=== PATIENT | female | born 1955 | race Caucasian/White ===

== ENCOUNTER 2016-09-22 05:47 | Day surgery (SDC) | payer BC ==
--- NOTE | 2016-09-15 14:47 | NUR ---
Education Postop CTR handouts and Surgical Services pamphlet sent to patient via mail.
[~2016-09-22] VITALS: Ht 165.1 cm; Wt 76.2 kg
[~2016-09-22 05:47] MED LIST: MULT-669 PO; NAPR220T61 PO; VIT1CAPS21 PO
--- OUTSIDE RECORDS SUMMARY | 2016-09-22 05:49 | XMS REPORT | Continuity of Care Document ---
Author Author [facility] Organization [facility] Address Unknown Phone Unavailable Support Name Relationship Address Phone ASHLEY GALAVIZ MD Caregiver [address] [place] [address] Unavailable BAHMAN NAVA MD Caregiver [address] [place] [address] Unavailable ROSEMARIE ERICKSON Next Of Kin [address] [place] [address] Insurance Providers Guarantor Andrea Erickson Address [address] [place] [address] C Email [email or web address] [email or web address] [facility] Policy Number [id number] Subscriber's Name Rosemarie Erickson Relationship 01 Spouse Group Number [id number] Effective Date 16 Advance Directives Directive Response Recorded Date/Time Ordered Resuscitation Status Full Code 07/22/16 1:21pm Resuscitation Documents on File Y PT BROUGHT COPY WITH HER TO BE PUT IN FILE 07/23/16 10:28am DPOA for Healthcare Only Yes 07/23/16 10:28am Living Will Yes 07/23/16 10:28am Problems No problem information available. Medications Current Home Medications Medication Dose Units Route Directions Days Qty Instructions Start Date Hydrocodone/Acetaminophen ([place] 5-325 Tablet) 5-325 Tablet 1-2 Tab Oral Every 6 Hours as needed for Pain 20 Tablet This medication contains Tylenol , do not take more than 3,000 mg of Tylenol in a 24 hr period. 07/23/16 Multivitamin With Minerals (Multiple Vitamin) 1 Each Tablet 1 Tab Oral Daily 07/21/16 Naproxen Sodium (Aleve) 220 Mg Tablet 1 Tab Oral Daily as needed for Pain 07/21/16 Polyethylene Glycol 3350 (Miralax) 17 Gm Powd.pack 17 G Oral Daily as needed for Constipation 1 Bottle Take 17 Grams (1 capful), by mouth, once a day. 07/23/16 Vit C/Vit E/Lutein/Min/[place]-3 (Ocuvite Softgel) 1 Each Capsule 1 Cap Oral Daily 07/21/16 Social History Social History Problem Response Recorded Date/Time Onset Date Status Reason for Hospitalization CTR 07/23/2016 12:50pm Not Applicable Not Applicable Chewing Tobacco Status No 07/21/2016 4:13pm Not Applicable Not Applicable Hx Substance Use No 07/21/2016 4:13pm Not Applicable Not Applicable Hx Alcohol Use Y OCC 07/21/2016 4:13pm Not Applicable Not Applicable Has the pt used tobacco in the last 12 months No 07/21/2016 4:13pm Not Applicable Not Applicable Query Response Start Date Stop Date Smoking Status Never smoker Hospital Discharge Instructions Instructions: Care Instructions: I was in the hospital because (patient own words): RELEASE PRESSURE ON RIGHT WRIST Discharge Diet: Resume your normal diet as tolerated. Discharge Activity: -Exercises are to be performed 2-3 times daily. -DO NOT lift any weight heavier than a coffee cup -Gentle range of motion of the wrist Follow Up Appointments: Follow up as scheduled. Pending Lab / Results: No Pending Lab Patient Instructions: DO NOT DRIVE, OPERATE MACHINERY, DRINK ALCOHOL, OR SIGN IMPORTANT PAPERS FOR 24 HOURS OR WHILE TAKING PAIN MEDICATIONS. Expected Signs/Symptoms: There will be pain at the incision site. Expect possible wrap swelling of the fingers. The bryan may be loosened if it feels too tight. Call your physician if you are unable to feel or move your fingers. Notify Physician If: You should contact our office if you develop significant drainage from the surgical incision, redness, or fever about 102 degrees. During Business Hours:: Contact the office at [phone] After Business Hours:: After office hours, please call [facility] at [phone] and have the tub wash operator page the physician. Pain Management/Treatment: You will be given a prescription for pain medication. You will have post-surgical pain for the first week after surgery. An anti-inflammatory medication may also be taken (mobic, ibuprofen, or naproxen). Wound/Incision Care: Keep the dressing clean and dry. On post-op day #4 you may remove the dressing. The incision needs to stay dry until you follow up with your physician. You may shower. DO NOT apply creams or ointments (bacitracin, triple antibiotic) to the incisions. Do not soak the wrist in water or go swimming until your sutures are removed. Condition at time of discharge: Good Plan of Care Discharge Date 07/23/16 1:45pm Prescriptions See Medication Section Functional Status Query Response Date Recorded Ability to complete ADL's impeded by No change July 23, 2016 10:28am Allergies, Adverse Reactions, Alerts No known allergies. Immunizations Query Response on File Recorded Date/Time Hx Influenza Vaccination Y -07/21/16 4:13pm Hx Pneumococcal Vaccination No 07/21/16 4:13pm Hx Influenza Vaccination Y 03-2207/21/16 4:13pm Vital Signs Acute Vital Signs Vital Response Date/Time Temperature (Fahrenheit) 97.0 deg F (96.8 - 99.1) 07/23/2016 12:33pm Temperature (Calculated Celsius) 36.46161 degrees C (36.0 - 37.3) 07/23/2016 12:33pm Temperature Source Temporal 07/23/2016 12:33pm Pulse Rate (adult) 100 bpm (60 - 100) 07/23/2016 1:30pm Respiratory Rate 12 breaths/min (10 - 20) 07/23/2016 1:30pm O2 Sat by Pulse Oximetry 100 % (90 - 100) 07/23/2016 1:30pm Oxygen Delivery Method Room Air 07/23/2016 1:30pm Blood Pressure 138/63 mm Hg 07/23/2016 1:30pm Blood Pressure Source Automatic Cuff 07/23/2016 1:30pm Height (Feet) 5 feet 07/23/2016 10:15am Height (Inches) 5.50 inches 07/23/2016 10:15am Weight (Kilograms) 77.000 kg 07/23/2016 10:15am Body Mass Index (BMI) 27.8 07/23/2016 10:15am Results No known relevant diagnostic tests, laboratory data and/or discharge summary. Procedures Procedure Status Date Provider(s) Musc test done w/n test comp Completed 07/01/16 Nrv cndj test 7-8 studies Completed 07/01/16 Carpal tunnel release, right Completed 07/23/16 BAHMAN NAVA MD Encounters Encounter Location Arrival/Admit Date Discharge/Depart Date Attending Provider Departed Surgical Day Care [facility] 07/23/16 10:04am 07/23/16 1 :45pm BAHMAN NAVA MD Registered Clinic [facility] 07/01/16 2:46pm RUI PHELAN MD
--- OUTSIDE RECORDS SUMMARY | 2016-09-22 05:49 | XMS REPORT | Continuity of Care Document ---
Author Author [facility] Organization [facility] Address Unknown Phone Unavailable Allergies Medications Problems Date Dx Coded Attending Type Code Diagnosis Diagnosed By 10/14/2015 Johanna Vicente MD 780.79 Fatigue 06/15/2016 Johanna Vicente MD 719.43 Wrist pain 06/15/2016 Johanna Vicente MD 719.46 Knee pain 07/09/2016 Johanna Vicente MD 354.0 Carpal tunnel syndrome Procedures Code Description Performed By Performed On THRMO Check the chart for orders due in three months 10/14/2015 58627 Office visit - new pt, level 2 10/14/2015 45911 Office/outpatient visit; established patient, level 3 06/15/2016 47078 Radiologic examination, knee; three views 07/09/2016 21059 Office/outpatient visit; established patient, level 3 07/09/2016 Results Encounters ACCT No. Visit Date/Time Discharge Status Pt. Type Provider Facility Loc./Unit Complaint [id number] 07/09/2016 08:56:51 2016 09:49:20 DIS Outpatient Johanna Vicente MD [facility]_
[2016-09-22 06:00] VITALS: BP 149/98; PULSE 103; RESP 16; TEMP 98.8; O2SAT 99
[2016-09-22 06:01] VITALS: Ht 165.1 cm; Wt 76.2 kg
[2016-09-22 06:41] LABS: BASOPHILS # (AUTO) 0.1 T/MM3 (0-0.2); EOSINOPHILS # (AUTO) 0.1 T/MM3 (0-0.5); EOSINOPHILS % (AUTO) 2.3 % (0-4); HCT - HEMATOCRIT 43.6 % (36-46); HGB - HEMOGLOBIN 14.7 GM/DL (12-16); IMMATURE GRANULOCYTE # (AUTO) 0.01 T/MM3 (0.00-0.03); IMMATURE GRANULOCYTE % (AUTO) 0.2 % (0.0-0.5); LYMPHOCYTES # (AUTO) 1.7 T/MM3 (1-4.8); LYMPHOCYTES % (AUTO) 35.7 % (23-45); MEAN CORPUSCULAR HGB 30.1 UUG (26-34); MEAN CORPUSCULAR HGB CONC(MCHC 33.7 GM/DL (31-37); MEAN CORPUSCULAR VOLUME 89.2 UM3 (80-100); MEAN PLATELET VOLUME 10.4 UM3 (9.4-12.4); MONOCYTES # (AUTO) 0.7 T/MM3 (0-0.8); MONOCYTES % (AUTO) 13.3 % (0-9.0); NEUTROPHILS #(AUTO)-ABSOLUTE 2.3 T/MM3 (1.8-7.7); NEUTROPHILS % (AUTO) 47.5 % (33-66); RED BLOOD COUNT 4.89 M/MM3 (4.00-5.20); WBC - WHITE BLOOD COUNT 4.9 T/MM3 (4.5-11.0)
--- NOTE | 2016-09-22 06:55 | ANESPREOP ---
Anesthesia Record Date and Time DATE: 09/22/16 TIME: 06:54 Pre-Op Diagnosis LCTS Proposed Surgical Procedure LT CTR Allergies: Coded Allergies: No Known Allergies (Unverified , 07/23/16) Ht/Wt/BMI Height: 5 ' 5.00 " Weight: 76.200 kg BMI: 28.0 kg/m2 Vital Signs Date Time Temp Pulse Resp B/P Pulse Ox O2 Delivery O2 Flow Rate FiO2 09/22/16 06:00 98.8 103 16 149/98 99 Room Air Medications Inpatient Medications Current Medications Medications (Trade) Dose Ordered Sig/Christine Start Time Stop Time Status Last Admin Dose Admin Lactated Ringer's (Lactated Ringers) 1,000 ml @ 50 mls/hr Q20H 09/22/16 07:00 09/22/16 06:32 50 MLS/HR Multivitamin with Minerals (Multiple Vitamin) 1 Each Tablet, 1 TAB PO DAILY, ( Reported) Last Taken: on 09/21/16 0700 Naproxen Sodium (Aleve) 220 Mg Tablet, 1 TAB PO DAILY PRN for PAIN, (Reported) Last Taken: on 09/21/16 0700 Vit C/Vit E/Lutein/Min/[place]-3 (Ocuvite Softgel ) 1 Each Capsule, 1 CAP PO DAILY, (Reported) Last Taken: on 09/21/16 0700 Currently on Beta Corina: No Medical/Surgical History Anesthesia PMH: Reports: Cancer (BCC ON NECK), Denies: *Angina, *ID, Anesthesia Reactions (NO KNOWN PROBLEMS IN ANY BLOOD RELATION), Asthma, CVA/ Stroke/TIA, Clotting Problems, Glaucoma, Malignant Hyperthermia, Reflux, Sleep Apnea Smoking Status: Never smoker Use Chewing Tobacco?: No Second Hand Exposure: No Substance Use Type: does not use Alcohol Intake: none HX of Last Menstrual Period: POST MENOPAUSAL Past Surgical History Orthopedic Surgeries: Abdominal Surgeries: Genitourinary Surgeries: Cardiac Surgeries: Endocrine Surgeries: Reproductive Surgeries: Neurological Surgeries: Yes - RT CTR Ear Surgeries: Nose Surgeries: Throat Surgeries: Other Surgeries: Yes - C SCOPE Anesthesia Adverse Reactions: FOUND none Family Hx of Anesthesia Advers: none Hx of Motion Sickness: No Pertinent Findings Laboratory Tests 09/22/16 06:15 EKG Rhythm: Sinus Rhythm EKG Ectopy: PVC Physical Exam Respiratory: Bilat breath sounds equal, Lungs clear Cardiovascular: FOUND Regular rate, rhythm, FOUND No murmur Airway Assessment Mallampati Score: I TMD: 3 Fingerbreadths Overall Assessment: No Airway Concerns ASA: 1 Plan Anesthesia Plan: TIVA Discussion Discussed risks/options/alternatives of anesthesia and questions answered. Patient consents. Nursing pain assessment noted. Present: Spouse Attestation Statement Prior to the delivery of any anesthetic medication, I examined the patient, developed the plan, obtained the patient's consent and discussed the risk and benefits of the procedure with the patient/guardian. SUHAIL GILMAN [employer] BUTTON PASTER Sep 22, 2016 06:55
[2016-09-22] MEDS ORDERED: BUPIVACAINE 0.25% (2.5mg/ml) INJ 30ml SDV ONE (06:57)
[2016-09-22] MEDS ORDERED: LIDOCAINE 1% (10mg/ml) 30ml SDV ONE (06:57)
[2016-09-22 06:59] VITALS: PULSE 79; TEMP 97.9
[2016-09-22] MEDS ORDERED: LIDOCAINE 1% (10mg/ml) 2ml SDV INJ ONE (07:00)
[2016-09-22] MEDS ORDERED: LR 1,000 ML IV SCH (07:00)
[2016-09-22] MEDS ORDERED: LIDOCAINE 2% (20mg/ml) 5ml PF SDV ONE (07:09)
[2016-09-22] MEDS ORDERED: PROPOFOL 500mg 50 ML IV ONE (07:09)
[2016-09-22] MEDS ORDERED: FENTANYL 100mcg/2ml INJECTION ONE (07:09)
[2016-09-22] MEDS ORDERED: KETAMINE 500mg/10ml INJECTION ONE (07:22)
[2016-09-22] MEDS ORDERED: HYDR-4246 PO (07:27)
[2016-09-22] MEDS ORDERED: POLY17PO6 PO (07:27)
[2016-09-22 07:42] VITALS: BP 140/65; PULSE 99; RESP 16; TEMP 96.8; O2SAT 98
--- NOTE | 2016-09-22 07:46 | PDOPERATE ---
Operative Note Date of Opeation 09/22/16 Preoperative Diagnosis Left carpal tunnel syndrome. Postoperative Diagnosis Left carpal tunnel syndrome. Operation Left carpal tunnel release. Surgeon Ava Weiner MD Complications None. Anesthesia TIVA with local. Tourniquet Time Please see Anesthesia Record. Estimated Blood Loss Minimal. Description of Procedure The patient and the operative extremity were identified and marked in the preoperative holding area. The patient was brought back to the operating suite and placed supine on the operating table. The patient was placed under general anesthesia. The left upper extremity was prepped and draped in my normal sterile fashion. A timeout was preformed. The arm was exsanguinated, and the tourniquet was inflated to 250 mmHg. The incision site was injected with 0.25% Marcaine and 1% Lidocaine. A 2.5 cm incision was made just ulnar to the thenar crease.Sharp dissection was carried down through the skin and subcutaneous fat, down to the palmar fascia and down to the transverse carpal ligament which was then excised under direct visualization, first with a scalpel and then completed both proximally and distally with scissors under direct visualization until all tight bands were released around the nerve. The wound was then irrigated, and the incision was closed with a 3-0 nylon in simple interrupted fashion. A sterile soft dressing was placed. The tourniquet was let down. The patient was allowed to awaken from general anesthesia and was taken to the recovery room under the care of Anesthesia. The patient tolerated the procedure well. There were no complications. BAHMAN WEINER MD Sep 22, 2016 07:46
--- NOTE | 2016-09-22 07:47 | ANESPO ---
Post-Op Note Date 09/22/16 Time: 07:47 Status Pt Participated in Evaluation: Pt participated in person Vital Signs Date Time Temp Pulse Resp B/P Pulse Ox O2 Delivery O2 Flow Rate FiO2 09/22/16 06:59 97.9 79 09/22/16 06:00 16 149/98 99 Room Air Respiratory Function: Airway patent, Regular respirations Cardiovascular Function: Regular pulse Telemetry Pattern: SR Mental Status: Alert/oriented Pain Level Intensity: 0 Hydration: IV infusing Complications during Recovery None apparent Follow-Up Instructions Instructions Per Surgeon SUHAIL GILMAN CRNA Sep 22, 2016 07:47
[2016-09-22 08:00] VITALS: BP 163/74; PULSE 90; RESP 13; O2SAT 100
[2016-09-22] MEDS ORDERED: CEFAZOLIN 1 GRAM INJECTION IV ONE (08:00)
[2016-09-22 08:17] VITALS: BP 169/78; PULSE 82; RESP 14; O2SAT 100
--- NOTE | 2016-09-22 08:21 | NUR ---
DISCHARGE PT STATES SHE IS A BIT WOOZEY AND WANTS TO WAIT A LITTLE LONGER TO BE DISMISSED.
[2016-09-22 08:39] VITALS: BP 176/80; PULSE 88; RESP 12; O2SAT 100
== END 2016-09-22 08:53 | disposition home or self-care (01) ==
LOC: NSC 05:47
PROVIDERS: ATTEND Orthopaedic Surgery
DX: G56.02 Carpal tunnel syndrome, left upper limb (principal)
CPT/HCPCS: 36415; 64721; 85025; A6222; J0690; J2704; J3010; J7120; S0020